=== PATIENT | female | born 1990 | race Hispanic/Latino ===

== ENCOUNTER 2017-03-16 23:34 | Emergency (ER) | payer SELFPAY ==
[2017-03-17] MEDS ORDERED: diphenhydrAMINE 25 MG CAP ONE (01:21)
== END 2017-03-17 01:53 | disposition home or self-care (01) ==
LOC: ERS 23:34
DX: L50.9 Urticaria, unspecified (principal)
CPT/HCPCS: 99283

== ENCOUNTER 2017-06-22 17:48 | Emergency (ER) | payer SELFPAY ==
[2017-06-22 18:29] LABS: #Basophils 0.1 thou/uL (0.0-0.2); #Eosinphils 0.1 thou/uL (0.0-0.7); #Lymphocytes 2.3 thou/uL (1.20-3.40); #Monocytes 0.5 thou/uL (0.11-0.59); #Neutrophils 5.7 thou/uL (1.40-6.50); %Basophils 0.7 % (0.0-1.0); %Eosinophils 0.7 % (0.0-10.0); %Lymphocytes 26.8 % (21.0-51.0); %Monocytes 5.9 % (0.0-10.0); %Neutrophils 65.9 % (42.0-75.0); Hemoglobin 10.4 g/dL (12.0-16.0); Mean Corpuscular HGB CONC 32.1 g/dL (32.0-36.0); Mean Corpuscular Hemoglobin 25.4 pg (27.0-31.0); Mean Corpuscular Volume 79.2 fl (81.0-99.0); Platelet Count 300 thou/uL (130-400); RBC Distribution Width 15.7 % (11.5-14.5); Red Blood Cell (RBC) Count 4.08 mill/uL (4.20-5.40); White Blood Cell (WBC) Count 8.7 thou/uL (4.8-10.8)
[2017-06-22] MEDS ORDERED: Ondansetron HCl/PF 4 MG/2 ML Vial ONE (18:41)
[2017-06-22 18:53] LABS: ALT (SGPT) 12 U/L (8-55); AST (SGOT) 13 U/L (5-34); Alkaline Phosphatase 70 U/L (40-150); Anion Gap 13 mmol/L (10-20); BUN (Urea Nitrogen) 6 mg/dL (7.0-18.7); Bilirubin, Total 0.3 mg/dL (0.2-1.2); Calc. Creatinine Clearance 0 mL/min (70-130); Calcium 8.8 mg/dL (7.8-10.44); Carbon Dioxide 21 mmol/L (22-29); Chloride 111 mmol/L (98-107); Estimated GFR-MDRD Greater than 90; Globulin 3.2 g/dL (2.4-3.5); Glucose 81 mg/dL (70-105); Potassium 3.6 mmol/L (3.5-5.1); Protein, Total 7.2 g/dL (6.0-8.3); Sodium 141 mmol/L (136-145)
[2017-06-22 19:22] LABS: Bilirubin Negative (Negative); Blood, Urine Large (Negative); Clarity CLOUDY (Clear); Glucose, Urine (Dipstick) Negative (Negative); Leukocyte Trace (Negative); Nitrite Negative (Negative); Protein, Urine (Dipstick) Negative (Neg-Trace); Specific Gravity, Urine 1.018 (1.002-1.036)
[2017-06-22 19:24] LABS: Pregnancy Test - Urine (BHCG) Negative (Negative); Pregu Control Background? CLEAR/WHITE (CLR/WHITE); Pregu Control Bar Appear? YES (CONTROL BAR); Specific Gravity 1.018 (1.002-1.036)
[2017-06-22 19:25] LABS: Bacteria/HPF Rare-Few HPF (None Seen); Hyaline Casts/LPF 0-3 HYALINE CAST LPF (0-3 Hyaline); RBC/HPF GREATER THAN 50-TNTC HPF (0-3)
[2017-06-22] MEDS ORDERED: Acetaminophen 325 MG TAB ONE (19:35)
--- NOTE | 2017-06-22 20:28 | RAD ---
SINGLE VIEW OF THE CHEST: Comparison: 06-07-13 History: Chest pain. FINDINGS: Single view of the chest shows a normal sized cardiomediastinal silhouette. There is no evidence of c onsolidation, mass, or pleural effusion. The bones are unremarkable. IMPRESSION: No evidence of acute cardiopulmonary disease. POS: [id number]
[2017-06-24 21:14] LABS: Chlamydia by PCR Not Detected (NotDetected); GC by PCR Not Detected (NotDetected)
== END 2017-06-22 20:57 | disposition home or self-care (01) ==
LOC: ERS 17:48
DX: R10.9 Unspecified abdominal pain (principal); R11.2 Nausea with vomiting, unspecified
CPT/HCPCS: 36415; 71045; 80053; 81003; 81015; 81025; 85025; 87077; 87086; 87186; 87480; 87491; 87510; 87591; 87660; 93005; 96361; 96374; J2405

== ENCOUNTER 2017-08-04 16:59 | Emergency (ER) | payer SELFPAY ==
[2017-08-04] MEDS ORDERED: Ketorolac Tromethamine 60 MG/2 ML VIAL ONE (19:11)
[2017-08-04] MEDS ORDERED: Dexamethasone 4 MG TAB ONE (19:11)
== END 2017-08-04 19:52 | disposition home or self-care (01) ==
LOC: ERS 16:59
DX: J06.9 Acute upper respiratory infection, unspecified (principal)
CPT/HCPCS: 87804; 96372; J1885; J8540

== ENCOUNTER 2019-05-22 14:28 | Emergency (ER) | payer SELFPAY ==
[2019-05-22] MEDS ORDERED: Dexamethasone 4 mg/ml Vial ONE (15:02)
== END 2019-05-22 15:15 | disposition home or self-care (01) ==
LOC: ERS 14:28
DX: L03.211 Cellulitis of face (principal); K04.7 Periapical abscess without sinus
CPT/HCPCS: 99283; J1100

== ENCOUNTER 2020-05-11 22:48 | Emergency (ER) | payer SELFPAY ==
[2020-05-11] MEDS ORDERED: EPINEPHrine 1 MG/ML AMP ONE ×2 (23:09→23:11)
[2020-05-11] MEDS ORDERED: Famotidine/PF 20 mg/2ml Vial ONE (23:09)
[2020-05-11] MEDS ORDERED: methylPREDNISolone Sod Succ/PF 125 MG/2 ML VIAL ONE (23:09)
[2020-05-11] MEDS ORDERED: EPINEPHrine 1 MG/ML AMP IM SCH (23:30)
[2020-05-12] MEDS ORDERED: Propofol 1,000 MG/100 ML VIAL IV ONE (01:28)
[2020-05-12] MEDS ORDERED: EPINEPHrine 1 MG/ML AMP ONE (03:48)
== END 2020-05-12 02:05 | disposition home or self-care (01) ==
LOC: ERS 22:48
DX: T78.40XA Allergy, unspecified, initial encounter (principal); L50.9 Urticaria, unspecified; E78.00 Pure hypercholesterolemia, unspecified
CPT/HCPCS: 96372; 96374; 96375; J0171; J2704; J2930; S0028